=== PATIENT | male | born 1965 | race Caucasian/White ===

== ENCOUNTER 2020-07-21 09:56 | Emergency (ER) | payer OTHER, SELFPAY ==
[2020-07-21 10:09] VITALS: BP 139/86; PULSE 89; RESP 18; TEMP 36.2; O2SAT 95; BMI 22.6
[2020-07-21] MEDS: Tetracaine HCl/PF 0.5% Oph Sol 4 ML DROPS 3 DROP EYE-LEFT (10:24)
[2020-07-21] MEDS: Erythromycin Base 0.5% Oph Oin 1 GM TUBE 1 CM EYE-LEFT (10:24)
[2020-07-21] MEDS: Fluorescein Sodium STRIP 1 STRIP EYE-LEFT (10:24)
--- NOTE | 2020-07-21 10:34 | ED.EYEPROB ---
HPI - Eye Problem General Chief complaint: Eye Problems Stated complaint: FB in eye Time Seen by Provider: 07/21/20 10:16 History of Present Illness HPI Narrative: Patient was at work using a power tool to cut plywood with eye protection, it was very windy and of foreign body flew into his left eye and is causing pain in the left lower lid, this happened 2 days ago, no discharge from eye, no vision loss, no photophobia Related Data Previous Rx's Medication Instructions Recorded cephalexin 500 mg PO QID 7 Days #28 tab 07/21/20 erythromycin 0.5 inch OPHTHALMIC (EYE) TID 5 07/21/20 Days #3.5 g Allergies Allergy/AdvReac Type Severity Reaction Status Date / Time No Known Allergies Allergy Verified 07/21/20 10:11 [No Known Allergies*] Review of Systems Review of Systems: Left eye and left lower eyelid discomfort No vision loss no eye discharge no photophobia no fever no chills no dizziness PMFSH Past Medical History Source: nursing notes reviewed Medical History (Updated 07/21/20 @ 10:54 by KRYSTIN Hernadez) No known health problems Social History Social History Advance Directives: No Advance Directives Information Provided: No Physical Exam Vital Signs: Vital Signs: Last Vital Signs Temp 97.2 F 07/21/20 10:09 Pulse 89 07/21/20 10:09 Resp 18 07/21/20 10:09 BP 139/86 07/21/20 10:09 Pulse Ox 95 07/21/20 10:09 Body Mass Index 22.6 General appearance no acute distress come and cooperative A&O x3 The head is normocephalic atraumatic The left eye pupils equal round reactive to light, extraocular motions are intact, staining with fluorescein did not reveal any corneal abrasion or foreign body in the eye When I retracted the left lower lid it was very red, no discharge and there was an abraded area in the medial section of the inner lower lid there was some mild lid swelling and some mild redness externally to the lower lid and the inferior orbit, no obvious swelling of the tissue around the orbit Right eye was normal Visual acuity was 2020 bilaterally, no photophobia Neck is supple Respiratory no distress Extremities full range of motion x4 Course Course Course Narrative: Patient seems to have abraded some of the tissue off the inner lower lid, there was no foreign body visualized there was no corneal abrasion, there is no impairment of his vision, as there was some redness to the skin of the external lower lid and inferior orbit I started Keflex for a possible cellulitis and erythromycin 0 or ointment and patient will follow with [facility] or eye doctor in 1-2 days Discharge Plan Discharge Clinical Impression: Abrasion Cellulitis Qualifiers: Site of cellulitis: periorbital Laterality: left Qualified Code(s): L03.213 - Periorbital cellulitis Patient Disposition: Home, Self-Care Additional Instructions: The left lower inner lid was scraped and very red, there was some redness to the skin on the outer lid and below the eye so we are treating with both an antibiotic eye ointment and antibiotic pills We gave a tetanus shot Follow-up with [facility] in 1-2 days for a recheck If needed they will refer you to an eye doctor Return to the ER any time any worse condition or any concerns Prescriptions: New erythromycin 5 mg/gram (0.5 %) ointment 0.5 inch ophthalmic (eye) TID 5 Days Qty: 3.5 RF: 0 cephalexin 500 mg tablet 500 mg PO QID 7 Days Qty: 28 RF: 0 Referrals: [facility] [Provider Group] - 2 days Erich Escalante [Physician] - 2 days Stand Alone Forms: Work/School Release Interventions: ED Discharge Assessment Last Done: 07/21/20 11:04 Discharge Date/Time: 07/21/20 11:08
[2020-07-21] MEDS: Diphth,Pertus(ACell),Tet Adult 0.5 ML SYRINGE IM (10:59)
[2020-07-21] MEDS: cephALEXin 500 MG CAPSULE PO (10:59)
== END 2020-07-21 11:08 | disposition home or self-care (01) ==
PROVIDERS: Emergency Provider Emergency Medicine
DX: S00.212A Abrasion of left eyelid and periocular area, initial encounter (principal); L03.213 Periorbital cellulitis; X58.XXXA Exposure to other specified factors, initial encounter; Y93.9 Activity, unspecified; Y92.9 Unspecified place or not applicable; Y99.9 Unspecified external cause status; Z79.899 Other long term (current) drug therapy
CPT/HCPCS: 90471; 90715; 99283; 99284

== ENCOUNTER 2021-03-16 08:20 | Outpatient (REF) | payer OTHER, SELFPAY ==
[2021-03-16 12:00] LABS: COVID-19 Test Negative (Negative)
== END 2021-03-16 08:21 | disposition home or self-care (01) ==
LOC: HO.LAB 08:20
PROVIDERS: Visit Provider Internal Medicine
DX: Z20.822 Contact with and (suspected) exposure to COVID-19 (principal)
CPT/HCPCS: 36415; 87635; C9803